=== PATIENT | female | born 1945 | race Caucasian/White ===

== ENCOUNTER 2017-05-03 09:25 | Observation (INO) | payer OTHER ==
--- NOTE | 2017-05-03 09:38 | EDPHY ---
H & P Time Seen by Provider: 05/03/17 09:28 HPI/ROS: CHIEF COMPLAINT: Chest pain and shortness of breath HISTORY OF PRESENT ILLNESS: Patient had coronary stenting in 2013 and then again in May of 2016. She had a negative angiogram for acute occlusions in November of this year but has a known small branch which was 70% occluded that was too small for a stent. She has been visiting family from [facility] and had some mild shortness of breath all week last week. She had some chest pain and shortness of breath last night but required 3 nitroglycerin to reduce her symptoms. She awakened this morning at 1:30 a.m. with chest pain shortness of breath. Nitroglycerin has not completely relieved her symptoms. Not associated with diaphoresis or vomiting, she does have a slight dry allergy cough which is unchanged. No radiation of symptoms. Currently very mild. REVIEW OF SYSTEMS: Eye: no change in vision ENT: no sore throat Cardiac: HPI no palpitations Pulmonary: HPI, symptoms are not exertional or positional Abdomen: no vomiting, diarrhea, abdominal pain Musculoskeletal: no back pain or leg swelling Skin: no rash Neuro: no headache Constitutional: no fever : no urinary symptoms A comprehensive 10 point review of systems is otherwise negative aside from elements mentioned in the history of present illness. PAST MEDICAL HISTORY: Coronary disease with stenting as above, atrial fibrillation on Eliquis Social history: Visiting her twin sister, they are from [facility] General Appearance: Alert and conversant, cooperative. Eyes: No scleral icterus. ENT, Mouth: Normal mucous membranes. Respiratory: Normal respiratory effort, breath sounds equal, lungs are clear to auscultation. Cardiovascular: Regular rate and rhythm. Gastrointestinal: Abdomen is soft and non tender. Neurological: Alert, face symmetric, normal motor and sensory in extremities. Skin: Warm and dry, no rashes. Musculoskeletal: No peripheral edema. No calf tenderness. Psychiatric: Not agitated. Emergency Department course/MDM: Patient would be unlikely to have pulmonary embolism is she is anticoagulated with Eliquis for her atrial fibrillation Suspicious story for acute coronary syndrome with typical symptoms not relieved by her usual nitroglycerin. No aspirin as she is on Plavix and Eliquis. IV nitroglycerin drip, plan to perform EKG chest x-ray troponin and BNP. 1045: Feels better, mild headache with the IV nitro, blood pressure 101. Admit for further evaluation and risk stratification, patient with known coronary disease and typical angina better with nitroglycerin. Constitutional: Initial Vital Signs Temperature (C) 36.8 C 05/03/17 09:31 Heart Rate 65 05/03/17 09:31 Respiratory Rate 18 05/03/17 09:31 Blood Pressure 153/82 H 05/03/17 09:31 O2 Sat (%) 97 05/03/17 09:31 O2 Delivery Mode Room Air Allergies/Adverse Reactions: clarithromycin [From Biaxin] Allergy (Verified 05/03/17 09:48) codeine Allergy (Verified 05/03/17 09:48) Home Medications: Medication Instructions Recorded [place] Thyroid 05/03/17 Clopidogrel 05/03/17 Eliquis 05/03/17 Metoprolol L[place]/Hydrochlorothiaz 05/03/17 Pregnenolone Micronized 05/03/17 Medical Decision Making - Diagnostics EKG Interpretation: 12-lead EKG interpreted by me; official reading is in trace master. My interpretation is sinus rhythm rate 63 no ischemic changes. Imaging Results: Imaging Impressions Chest X-Ray 05/03/17 09:49 Impression: No pneumonia or source for symptoms identified. Differential Diagnosis: Differential diagnosis considered for shortness of breath including but not limited to pulmonary infectious process, COPD, asthma, pulmonary embolus and congestive heart failure. Consult/Admit Bed Type: [place] [id number] - Data Points Laboratory Results: Laboratory Results 05/03/17 09:37 05/03/17 09:37 05/03/17 05/03/17 09:37 09:37 WBC 6.33 10^3/uL 10^3/uL (3.80-9.50) RBC 4.34 10^6/uL 10^6/uL (4.18-5.33) Hgb 14.1 g/dL g/dL (12.6-16.3) Hct 41.6 % % (38.0-47.0) MCV 95.9 fL fL (81.5-99.8) MCH 32.5 pg pg (27.9-34.1) MCHC 33.9 g/dL g/dL (32.4-36.7) RDW 13.8 % % (11.5-15.2) Plt Count 233 10^3/uL 10^3/uL (150-400) MPV 10.3 fL fL (8.7-11.7) Neut % (Auto) 36.6 % L % (39.3-74.2) Lymph % (Auto) 48.5 % H % (15.0-45.0) [place]ink % (Auto) 11.4 % % (4.5-13.0) Eos % (Auto) 2.7 % % (0.6-7.6) Baso % (Auto) 0.6 % % (0.3-1.7) Nucleat RBC Rel Count 0.0 % % (0.0-0.2) Absolute Neuts (auto) 2.32 10^3/uL 10^3/uL (1.70-6.50) Absolute Lymphs (auto) 3.07 10^3/uL H 10^3/uL (1.00-3.00) Absolute Monos (auto) 0.72 10^3/uL 10^3/uL (0.30-0.80) Absolute Eos (auto) 0.17 10^3/uL 10^3/uL (0.03-0.40) Absolute Basos (auto) 0.04 10^3/uL 10^3/uL (0.02-0.10) Absolute Nucleated RBC 0.00 10^3/uL 10^3/uL (0-0.01) Immature Gran % 0.2 % % (0.0-1.1) Immature Gran # 0.01 10^3/uL 10^3/uL (0.00-0.10) Sodium 142 mEq/L mEq/L (134-144) Potassium 4.2 mEq/L mEq/L (3.5-5.2) Chloride 104 mEq/L mEq/L (97-110) Carbon Dioxide 23 mEq/l mEq/l (22-31) Anion Gap 15 mEq/L mEq/L (8-16) BUN 18 mg/dL mg/dL (7-23) Creatinine 0.6 mg/dL mg/dL (0.6-1.0) Estimated GFR > 60 Glucose 110 mg/dL H mg/dL (70-100) Calcium 10.0 mg/dL mg/dL (8.5-10.4) Troponin I < 0.012 ng/mL ng/mL (0.000-0.034) NT-Pro-B Natriuret Pep 33 pg/mL pg/mL (0-125) Medications Given: Discontinued Medications Nitroglycerin/Dextrose (Nitroglycerin 200 Mcg/Ml (Premix)) 250 mls @ 0 mls/hr IV CONT ONE; Titrate PRN Reason: Protocol Stop: 05/03/17 10:05 Last Admin: 05/03/17 10:11 Dose: 250 mls Sodium Chloride (Ns) 1,000 mls @ 0 mls/hr IV ONCE ONE PRN Reason: Wide Open Stop: 05/03/17 10:49 Last Admin: 05/03/17 10:52 Dose: 1,000 mls Departure - Departure Disposition: [facility] Inpatient Acute Clinical Impression: Chest pain Qualifiers: Ischemic chest pain type: unspecified angina pectoris type Condition: Good Referrals: SHOSHANA LOVETT [Other] - As per Instructions
--- NOTE | 2017-05-03 09:41 | CPEKG ---
Heart Rate: 63 RR Interval: 952 P-R Interval: 160 QRSD Interval: 84 QT Interval: 396 QTC Interval: 406 P Greene: 22 QRS Greene: 32 T Wave Greene: 35 EKG Severity - NORMAL ECG - EKG Impression: SINUS RHYTHM Electronically Signed By: Rei Hutchinson 03-May-2017 09:47:53
[2017-05-03 09:56] LABS: PLATELET COUNT 233 10^3/uL (150-400)
[2017-05-03] MEDS ORDERED: NITROGLYCERIN/DEXTROSE 250 ML IV ONE (10:04)
[2017-05-03] MEDS ORDERED: NS 1,000 ML IV ONE (10:48)
[2017-05-03] MEDS ORDERED: ACETAMINOPHEN 325 MG TAB PO PRN (12:34)
[2017-05-03] MEDS ORDERED: ONDANSETRON 4 MG/2 ML VIAL IVP PRN (12:34)
--- NOTE | 2017-05-03 14:06 | GHP ---
[f rep st] HISTORY AND PHYSICAL DATE OF ADMISSION: 05/03/2017 CHIEF COMPLAINT: Chest pain and shortness of breath. HISTORY OF PRESENT ILLNESS: The patient is a 71-year-old female with a history of coronary artery di sease with previous stents to right coronary artery, most recently May 2016. She is visiting her e from [facility], arriving by airplane on April 24. She felt good for the first couple d ays that she was here, but then 3 days ago, she developed acute onset of a sudden severe chest pain. This was in the middle of her chest, location typical of her usual angina, nonpleuritic, squeezing. She took 1 nitroglycerin, her chest pain completely resolved, which was reassuring to her. Last nig ht, she had recurrence of symptoms and was up all night quite uncomfortable with shortness of breath. The chest pain was less prominent last night and it was really more shortness of breath. She took 3 nitroglycerin throughout the evening and did not get relief of symptoms so presented to the emergen cy room. She was started on a nitroglycerin drip in the ER. She is now symptom free. PAST MEDICAL HISTORY: 1. Coronary artery disease, status post stent to the right coronary artery 2013, and again, stent to right coronary artery 2016. She had a followup negative catheterization in November, except for a 60% t o 70% side arterial branch that was too small to stent, being told that this vessel only supplied abo ut 4% of her heart tissue. 2. Atrial fibrillation. MEDICATIONS: Please see computer record for full detailed list. ALLERGIES: Clarithromycin and codeine. SOCIAL HISTORY: No smoking. Occasional wine. She is visiting from [facility], staying with robyn head, planning to fly home on Thursday. REVIEW OF SYSTEMS: Complete review of systems obtained. Review of systems negative regarding consti tutional, HEENT, GI, pulmonary, cardiovascular, , hematology, skin, muscular endocrine psychiatric, except for positives and negatives as in HPI. FAMILY HISTORY: Reviewed, noncontributory to presenting complaint. PHYSICAL EXAMINATION: GENERAL: Well-developed, well-nourished female in no acute distress. VITAL S IGNS: Temperature is 36.5, pulse 63, blood pressure 120/68, saturating 95% on room air. HEENT: Eye s: Normal conjunctivae. Pupils equal, round, react to light. ENT: Normal ears, nose. Hearing inta ct. Normal teeth. Oropharynx moist. NECK: Trachea midline. No thyromegaly. CHEST: Normal effor t. LUNGS: Clear to auscultation bilaterally. CARDIOVASCULAR: Regular rhythm. No murmur. No lowe r extremity edema. ABDOMEN: Soft, nontender. No hepatosplenomegaly. SKIN: Warm, dry, intact. No rash. MUSCULOSKELETAL: No cyanosis or clubbing. Strength 5/5 upper and lower extremities. NEUROL OGIC: Cranial nerves intact. Normal sensation to light touch. PSYCHIATRIC: Alert and oriented x3. Normal affect. Normal judgment and insight. Normal memory. LABORATORY DATA: White count 6.33, hematocrit 41.6, platelets 233. Sodium 142, potassium 4.2, chlor bernard 104, bicarb 23, BUN 18, creatinine 0.6, glucose 110. Troponins negative. BNP is 33. EKG viewed by me. My personal interpretation is normal sinus rhythm. No ST, T-wave changes. Chest x-ray is negative. ASSESSMENT/PLAN: 1. Chest pain and shortness of breath consistent with her previous angina, unresolved with sublingua l nitroglycerin. Initially placed on IV nitroglycerin drip. She is currently symptom free, so we wi ll titrate that off and can use some nitroglycerin paste. I have consulted Dr. Bijal Craig of [facility]. The patient has a history of multiple false negative stress test in the past and she declined a ny further stress testing. Dr. Craig will see her in consultation, but anticipate repeat cardiac cath eterization in the morning. 2. Coronary artery disease, status post stent x2 to right coronary artery, last in May 2016. We will continue her Plavix. We will check a lipid panel. Continue metoprolol. 3. Atrial fibrillation. We will hold her Eliquis in anticipation of possible cardiac catheterizatio n. Continue metoprolol. CODE STATUS: Full. ADMISSION STATUS: Will admit to observation as she may be able go home tomorrow if her cardiac benito terization is unremarkable. DVT PROPHYLAXIS: She is low risk given her chronic anticoagulation with Eliquis. /[id number]/MODL
[2017-05-03] MEDS: PRAVASTATIN SODIUM 40 MG TAB PO SCH (15:01)
--- NOTE | 2017-05-03 15:31 | GCON ---
[f rep st] CONSULTATION CARDIOLOGY CONSULT. DATE OF CONSULTATION: 05/03/2017 CHIEF COMPLAINT: Chest pain. HISTORY OF PRESENT ILLNESS: We were asked by Dr. Thorne to visit with the patient. The patient is a pleasant 71-year-old female with a history of known coronary artery disease. In 2013, she had an [place] requiring stenting to the right coronary artery. In May 2016, she had recurrent angina and repea t stenting to the RCA, according to the patient, in a different spot in the vessel. She had a repeat coronary angiogram in November of this year for recurrent anginal symptoms, and she tells me that her st ents were patent at that time. Ejection fraction is preserved. She is in town visiting family. Over the past few days, she has had intermittent dyspnea. When she exerts herself, she has some nonspecific chest discomfort that "does not feel right." 3 days ago, jennifer juárez had a significant episode of chest pain while sitting and playing a game. This was resolved with s ublingual nitroglycerin. Last night, she felt short of breath throughout the night, and it was somew hat resolved with nitroglycerin. Because of the symptoms, she elected to come to the ER. She is now admitted for further observation and management. She is currently chest pain free and is not having shortness of breath. She has not had any recent palpitations, but does have a history of paroxysmal atrial fibrillation. No lower extremity edema. She felt a little bit lightheaded but has not had s yncope. She is somewhat active at home, and has not had recent exertional angina. REVIEW OF SYSTEMS: A full 10-point Review of Systems was performed and is negative, except that whic h is outlined in History of Present Illness. ALLERGIES: Clarithromycin, codeine. PAST MEDICAL HISTORY: 1. Coronary disease as detailed above. 2. Paroxysmal atrial fibrillation. 3. Dyslipidemia, currently on red yeast rice. 4. Hypothyroidism. OUTPATIENT MEDICATIONS: Eliquis 5 mg twice daily, Plavix 75 mg daily, herbal supplements, metoprolol 50 mg at night, and [place] Thyroid. SOCIAL HISTORY: The patient is and her is at the bedside. She does not smoke cigare ttes. She rarely drinks alcohol. FAMILY HISTORY: Notable for mother with stroke and brother with premature coronary artery disease. PHYSICAL EXAM: VITAL SIGNS: Blood pressure 120/68, heart rate 60, oxygen saturation 94% on room air , she is afebrile. GENERAL: Well-appearing older female in no acute distress. HEENT: Sclerae max r. No jaundice. Mucous members moist. CARDIOVASCULAR: JVP less than 10. Carotids equal and 2+ wi thout bruit. Regular rate and rhythm without murmur or gallop. LUNGS: Clear to auscultation. No r ales, rhonchi, or rales. ABDOMEN: Soft, nontender, nondistended, without bruits, masses, hepatosple nomegaly. EXTREMITIES: Warm and well perfused, without cyanosis, clubbing, or edema. NEURO: Alert and oriented x3 without gross focal neurologic deficits. PSYCH: Appropriate mood and affect. LABORATORY DATA: CBC is normal except for a slight lymphocyte predominance. Basic metabolic panel n ormal except for glucose of 110. Troponin is negative, and BNP is 33. EKG, reviewed by me, shows normal sinus rhythm without ischemic changes. Chest x-ray reviewed by me shows no acute cardiopulmonary process. ASSESSMENT AND PLAN: A 71-year-old female with known coronary disease. She has a history of myocard ial infarction 4 years ago, and has had 2 separate stenting procedures to her RCA. She now presents with symptoms concerning for unstable angina, in that it is new onset and worsening. It has happened with minimal exertion and also with rest. She is currently chest pain free with a single negative t roponin and a nonischemic EKG. 1. Chest pain/coronary artery disease: Possible unstable angina. No ST elevation. No indication f or emergent catheterization, especially since she is on Eliquis. We will hold Eliquis and plan for a ngiogram in the morning due to the new-onset pattern of her angina. She also mentions that she previ ously has had normal stress tests, but then went on to have catheterization with obstructive coronary artery disease. Continue beta-marianna. Add low-dose pravastatin. She has previously been intolera nt of atorvastatin and rosuvastatin. 2. Paroxysmal atrial fibrillation: Currently in normal sinus rhythm. Hold Eliquis in preparation f or catheterization. Restart Eliquis post catheterization. Continue Plavix. 3. Dyslipidemia: Trial of pravastatin. 4. Hypothyroidism: Continue [place] Thyroid. Thank you for allowing us to participate in the patient's care. Will follow. /[id number]/MODL
[2017-05-03] MEDS: NITROGLYCERIN 2% 1 GM PACKET TP SCH ×2 (17:12→20:06)
[2017-05-03] MEDS ORDERED: APIXABAN 5 MG TAB PO SCH (21:00)
[2017-05-03] MEDS ORDERED: CLOPIDOGREL BISULFATE 75 MG TAB PO SCH (21:00)
[2017-05-03] MEDS ORDERED: METOPROLOL SUCCINATE XR 50 MG TAB PO SCH (21:00)
[2017-05-03] MEDS ORDERED: MELATONIN 3 MG TAB PO PRN (21:07)
[2017-05-03] MEDS ORDERED: MAGNESIUM OXIDE 400 MG TAB PO SCH (21:15)
[2017-05-03 21:46] LABS: INR 0.97 (0.83-1.16); PROTIME(PATIENT) 13.1 SEC (12.0-15.0)
[2017-05-04] MEDS: NITROGLYCERIN 2% 1 GM PACKET TP SCH ×3 (02:47→11:51)
[2017-05-04] MEDS ORDERED: THYROID 60 MG TAB PO SCH (07:00)
[2017-05-04] MEDS: PRAVASTATIN SODIUM 40 MG TAB PO SCH (08:16)
[2017-05-04] MEDS ORDERED: FAMOTIDINE 20 MG TAB PO ONE (08:41)
[2017-05-04] MEDS ORDERED: TEMAZEPAM 15 MG CAP PO PRN (08:41)
[2017-05-04] MEDS ORDERED: diphenhydrAMINE 25 MG CAP PO ONE (08:41)
[2017-05-04] MEDS ORDERED: ASPIRIN EC 325 MG TAB PO ONE (08:41)
[2017-05-04] MEDS ORDERED: DIAZEPAM 5 MG TAB PO ONE (08:41)
--- NOTE | 2017-05-04 08:43 | PDPROPOC ---
Sedation Plan of Care Sedation Plan of Care: vital signs stable ASA Classification: ASA 2 Planned drugs: fentanyl, midazolam Mallampati Score: Class 2 Mallampati Reference Image: Patient passed 3-3-2 rule?: Yes
--- NOTE | 2017-05-04 08:43 | PDHPUP ---
History & Physical Update H&P update statement: This history and physical update is based on an assessment of the patient which was completed after admission or registration (within 24 hours), but prior to the surgery/procedure. H&P update: H&P reviewed & patient examined, no change in patient's condition since H&P completed
[2017-05-04] MEDS ORDERED: NS 1,000 ML IV SCH (08:45)
--- NOTE | 2017-05-04 09:25 | CPEKG ---
Heart Rate: 62 RR Interval: 968 P-R Interval: 156 QRSD Interval: 84 QT Interval: 408 QTC Interval: 415 P [place]: 31 QRS [place]: 50 T Wave [place]: 52 EKG Severity - NORMAL ECG - EKG Impression: SINUS RHYTHM Electronically Signed By: Benson Sullivan 05-May-2017 12:34:12
[2017-05-04] MEDS ORDERED: fentaNYL 100 MCG/2 ML INJ ONE (09:50)
[2017-05-04] MEDS ORDERED: LIDOCAINE 1% 300 MG/30 ML SDV ONE (09:50)
[2017-05-04] MEDS ORDERED: IOPAMIDOL (ISOVUE-370) 150 ML BTL IV ONE (09:50)
[2017-05-04] MEDS ORDERED: MIDAZOLAM 2 MG/2 ML VIAL ONE (09:50)
[2017-05-04] MEDS ORDERED: ISOSORBIDE MONONITRATE 30 MG TAB.SR PO SCH (11:30)
[2017-05-04] MEDS ORDERED: ATROPINE SULFATE 1 MG/10 ML SYR IVP PRN (11:30)
--- NOTE | 2017-05-04 11:36 | PDDXCAT ---
Diagnostic Cath Note - . Date: 05/04/17 Spring Intern: Rafa Laborer Filter Plant: Renee Indication: CCC Class III and IV angina on medical treatment - Procedure Access: right groin Procedure: left heart catheterization, coronary angiography, left ventriculogram - Materials Left Heart Cath materials: other (JR 3.5 5F; JL 4; pigtail) - Findings-Left Heart Catheterization LM: normal LAD: 40% proximal stenosis; no flow limitation; 1 diagonal LCX: diffuse calcific disease without flow limitation; 2 OMs without significant disease RCA: prox 20%. Mild ISRS of prox to mid previously placed stent; distal stent with mild ISRS. Proximal to distal stent there are serial 50% stenoses EDP: 16 LVEF: 65 - Findings-Right Heart Catheterization AO: 138/66 Estimated blood loss: <50ml Closure method: manual pressure Assessment: No flow limiting CAD to explain resting CP. Normal EF Plan: Intensify medical management with Imdur and statin. Continue Plavix, BB. Restart Eliquis 05/05/2017 Patient Problems: Problems Problem Status Onset Chest pain Acute
[2017-05-04 17:01] VITALS: BP 107/60; PULSE 76; RESP 14; TEMP 97.9; O2SAT 92
--- NOTE | 2017-05-04 19:00 | GDS ---
[f rep st] DISCHARGE SUMMARY DISCHARGE DIAGNOSES: 1. Probable angina due to small vessel occlusion. 2. Coronary artery disease, status post stent to the right coronary artery. 3. Atrial fibrillation. 4. Hyperlipidemia. HISTORY OF PRESENT ILLNESS: The patient is a 71-year-old female visiting from [facility]. She has known coronary artery disease, involving her right coronary artery for which she has had stents in the past, most recently in May of 2016. She had a cardiac catheterization in October that showed a 70% blockage of a small artery off her main vessel that was too small to stent. She came here to visit family and has been having chest pain and shortness of breath since arrival, which became unresponsive to nitroglycerin, so she presented to the emergency department. She has a history of previous false negative stress tests and refused to have further stress testing. Cardiology was consulted. She did undergo cardiac catheterization. Her right coronary artery stents are patent, and we do believe it is a small perforating artery causing ongoing angina, as the source of her pain. Cardiology added Imdur. She also has a significant hyperlipidemia with her LDL of 187, which needs more optimized treatment. She has been intolerant to Crestor and Lipitor in the past due to myalgias. Cardiology initiated her on pravastatin and an extensive discussion was had with the patient regarding the risk-benefit ratio of continuing to attempt statin therapy. DISCHARGE MEDICATIONS: Please see computer record for full detailed list. New medications: 1. Imdur 30 mg p.o. daily. 2. Pravastatin 40 mg p.o. daily. ADDITIONAL DISCHARGE INSTRUCTIONS: 1. Resume Eliquis tomorrow morning after recovery from cardiac catheterization. 2. Follow up with rope making machine operator Dr. Lee Russell in [place], [place] after returning back to [facility] in a couple of days. Greater than 30 minutes' time was spent in arranging this discharge. The patient seen and examined by me on the day of discharge. /[id number]/MODL MTDD
== END 2017-05-04 18:20 | disposition home or self-care (01) ==
LOC: F2W 11:30
PROVIDERS: ADMIT Internal Medicine; ATTEND Internal Medicine
PROC: 4A023N7 Measurement of Cardiac Sampling and Pressure, Left Heart, Percutaneous Approach (ICD-10-PCS; principal; 2017-05-03)
PROC: B2151ZZ Fluoroscopy of Left Heart using Low Osmolar Contrast (ICD-10-PCS; principal; 2017-05-03)
PROC: B2111ZZ Fluoroscopy of Multiple Coronary Arteries using Low Osmolar Contrast (ICD-10-PCS; principal; 2017-05-03)
DX: I25.10 Atherosclerotic heart disease of native coronary artery without angina pectoris (principal); I48.0 Paroxysmal atrial fibrillation; E78.5 Hyperlipidemia, unspecified; E03.9 Hypothyroidism, unspecified; Z79.01 Long term (current) use of anticoagulants
CPT/HCPCS: 71020; 93005; 93458; G0378; 96365; J1644; J2250; J3010; Q9967